=== PATIENT | female | born 1995 | race American Indian/Alaskan Native ===

== ENCOUNTER 2020-09-03 17:14 | Emergency (ER) | payer OTHER ==
[2020-09-03 19:01] VITALS: BP 116/79
--- NOTE | 2020-09-03 20:00 | Emergency Department Report ---
ED General Adult HPI - General Chief complaint: Chest Pain Stated complaint: EAR INFECTION/CHEST PAINS Time Seen by Provider: 09/03/20 19:29 Source: patient Mode of arrival: Ambulatory Limitations: No Limitations - History of Present Illness Initial comments: Patient is a 25-year-old female presents emergency room with complaints of a possible ear infection. She states that she has had right-sided ear pain for 2 to 3 days. She denies any ear drainage, anything getting into her ear, recent swimming, hearing changes. Patient states also today she was feeling some anxiety and states that she is just trying to "figure out her life" when she began feeling some chest pain and shortness of breath. She has no pain currently. she denies any SI or HI. She denies any pleuritic chest pain, fever, nausea, vomiting, diarrhea, cough, leg swelling. She denies any recent travel, sick contacts, recent surgery, hormone use, recent immobilization. No past medical history. No allergies medications. Last menstrual cycle 08/16/2020. - Related Data Previous Rx's Medication Instructions Recorded Last Taken Type cephALEXin [Keflex] 500 mg PO Q12HR 7 Days #14 cap 03/16/18 Unknown Rx Amoxicillin/Potassium Clav 1 each PO BID 10 Days #20 tablet 09/03/20 Unknown Rx [Augmentin 875-125 Tablet] Azithromycin [Zithromax Z-DIANNA] 250 mg PO DAILY 5 Days #6 tablet 09/03/20 Unknown Rx Allergies Allergy/AdvReac Type Severity Reaction Status Date / Time No Known Allergies Allergy Unverified 03/16/18 13:20 ED Review of Systems ROS: Stated complaint: EAR INFECTION/CHEST PAINS Other details as noted in HPI Comment: All other systems reviewed and negative ED Past Medical Hx - Past Medical History Previous Medical History?: No - Social History Smoking Status: Never Smoker Substance Use Type: None - Medications Home Medications: Home Medications Medication Instructions Recorded Confirmed Last Taken Type cephALEXin [Keflex] 500 mg PO Q12HR 7 Days #14 cap 03/16/18 Unknown Rx Amoxicillin/Potassium Clav 1 each PO BID 10 Days #20 tablet 09/03/20 Unknown Rx [Augmentin 875-125 Tablet] Azithromycin [Zithromax Z-DIANNA] 250 mg PO DAILY 5 Days #6 tablet 09/03/20 Unknown Rx ED Physical Exam - General Limitations: No Limitations General appearance: alert, in no apparent distress - Head Head exam: Present: atraumatic, normocephalic - Eye Eye exam: Present: normal appearance - ENT ENT exam: Present: normal orophraynx, mucous membranes moist, other (left TM and canal are normal, right TM is erythematous with purulence behind the TM, no TM perforation, normal canal ) - Respiratory Respiratory exam: Present: normal lung sounds bilaterally. Absent: respiratory distress, wheezes, rales, rhonchi, stridor, chest wall tenderness, accessory muscle use, decreased breath sounds, prolonged expiratory - Cardiovascular Cardiovascular Exam: Present: regular rate, normal rhythm, normal heart sounds. Absent: systolic murmur, diastolic murmur, rubs, gallop - Neurological Exam Neurological exam: Present: alert, oriented X3 - Psychiatric Psychiatric exam: Present: normal affect, normal mood - Skin Skin exam: Present: warm, dry, intact ED Course Vital Signs 09/03/20 18:58 Temperature 99.3 F Pulse Rate 92 H Respiratory 18 Rate Blood Pressure 116/79 [Right] O2 Sat by Pulse 100 Oximetry ED Medical Decision Making - EKG Data EKG shows normal: sinus rhythm, axis, intervals, QRS complexes, ST-T waves Rate: normal - Radiology Data Radiology results: report reviewed Ordering Physician: LIOR MCGUIRE Date of Service: 09/03/20 Procedure(s): XR chest routine 2V Accession Number(s): [id number] cc: LIOR MCGUIRE Fluoro Time In Minutes: CHEST 2 VIEWS INDICATION / CLINICAL INFORMATION: cp, sob. COMPARISON: 03/16/2018 FINDINGS: SUPPORT DEVICES: None. HEART / MEDIASTINUM: No significant abnormality. LUNGS / PLEURA: Focal density in the left hilar region No pneumothorax. ADDITIONAL FINDINGS: No significant additional findings. IMPRESSION: Focal density is seen in the left hilar region which could represent pneumonia. The right lung is clear Signer Name: Clyde Cardona MD FACR Signed: 09/03/2020 8:16 PM Workstation Name: [id number] Transcribed By: MS Dictated By: Clyde Cardona MD Electronically Authenticated By: Clyde Cardona MD Signed Date/Time: 09/03/202015 DD/ 14 TD/TT: - Medical Decision Making Patient is a 25-year-old female presents emergency room with complaints of a possible ear infection. She states that she has had right-sided ear pain for 2 to 3 days. She denies any ear drainage, anything getting into her ear, recent swimming, hearing changes. Patient states also today she was feeling some anxiety and states that she is just trying to "figure out her life" when she began feeling some chest pain and shortness of breath. She has no pain currently. she denies any SI or HI. She denies any pleuritic chest pain, fever, nausea, vomiting, diarrhea, cough, leg swelling. She denies any recent travel, sick contacts, recent surgery, hormone use, recent immobilization. No past medical history. No allergies medications. Last menstrual cycle 08/16/2020. On exam:left TM and canal are normal, right TM is erythematous with purulence behind the TM, no TM perforation, normal canal, breath sounds are clear bilaterally, no wheezing, no rales, no rhonchi. Vitals are normal, no hypoxia, no tachycardia, no fever. Chest x-ray: Focal density is seen in the left hilar region which could represent pneumonia. The right lung is clear . EKG with no evidence of acute infarction or ischemia. Discussed the results with patient. Patient will be placed on Augmentin and azithromycin. Advised patient that she needed to have a repeat chest x-ray as an outpatient for clearance of pneumonia. Discussed very strict return precautions with patient. Advised patient Please take medication as prescribed. Follow-up with a primary care doctor. It is very important that you follow-up. You need to have a repeat chest x-ray for resolution of the pneumonia. Return to emergency room for new or worsening symptoms. Critical care attestation.: If time is entered above; I have spent that time in minutes in the direct care of this critically ill patient, excluding procedure time. ED Disposition Clinical Impression: SOB (shortness of breath) Otitis media Qualifiers: Otitis media type: suppurative Chronicity: acute Laterality: right Recurrence: non-recurrent Spontaneous tympanic membrane rupture: without spontaneous rupture Qualified Code(s): H66.001 - Acute suppurative otitis media without spontaneous rupture of ear drum, right ear Pneumonia Qualifiers: Pneumonia type: due to unspecified organism Laterality: left Lung location: unspecified part of lung Qualified Code(s): J18.9 - Pneumonia, unspecified organism Chest pain Qualifiers: Chest pain type: unspecified Qualified Code(s): R07.9 - Chest pain, unspecified Disposition: TO HOME OR SELFCARE Is pt being admited?: No Does the pt Need Aspirin: No Condition: Stable Instructions: Otitis Media, Adult, [id number], Community-Acquired Pneumonia, Adult, Bacterial Pneumonia (ED) Additional Instructions: Please take medication as prescribed. Follow-up with a primary care doctor. It is very important that you follow-up. You need to have a repeat chest x-ray for resolution of the pneumonia. Return to emergency room for new or worsening symptoms. Prescriptions: Amoxicillin/Potassium Clav [Augmentin 875-125 Tablet] 1 each PO BID 10 Days #20 tablet Azithromycin [Zithromax Z-DIANNA] 250 mg PO DAILY 5 Days #6 tablet Referrals: SHALOM KU MD [Staff Physician] - 2-3 Days [facility] [Provider Group] - 2-3 Days Time of Disposition: 20:47 Print Language: MALTESE
--- NOTE | 2020-09-03 20:20 | XRay Report ---
CHEST 2 VIEWS INDICATION / CLINICAL INFORMATION: cp, sob. COMPARISON: 03/16/2018 FINDINGS: SUPPORT DEVICES: None. HEART / MEDIASTINUM: No significant abnormality. LUNGS / PLEURA: Focal density in the left hilar region No pneumothorax. ADDITIONAL FINDINGS: No significant additional findings. IMPRESSION: Focal density is seen in the left hilar region which could represent pneumonia. The right lung is enid ar Signer Name: Clyde Cardona MD FACR Signed: 09/03/2020 8:16 PM Workstation Name: [id number]
--- NOTE | 2020-09-04 13:36 | Electrocardiograph Report ---
[facility] Test Date: 2020-09-03 Test Time: 19:08:59 Pat Name: MUSA BRAUN Department: Room: Gender: F [employer]: SEBASTIAN : 1995 Requested By: SIENA GREEN Order Number: [id number] Reading MD: Мария Ta Measurements Intervals [place] Rate: 87 P: 76 NV: 152 QRS: 58 QRSD: 76 T: 28 QT: 337 QTc: 405 Interpretive Statements Sinus rhythm Probable left atrial enlargement Possible old anteroseptal infarct No previous ECG available for comparison Electronically Signed On 09-04-2020 13:36:01 EDT by Мария Ta
== END 2020-09-03 21:00 | disposition home or self-care (01) ==
LOC: ED 17:14
DX: H66.91 Otitis media, unspecified, right ear (principal); J18.9 Pneumonia, unspecified organism; R07.9 Chest pain, unspecified; R06.02 Shortness of breath; Z79.899 Other long term (current) drug therapy
CPT/HCPCS: 71046; 93005